=== PATIENT | female | born 1990 | race Caucasian/White ===

== ENCOUNTER 2022-05-07 12:21 | Observation (INO) | payer OTHER ==
[~2022-05-07] VITALS: Ht 170.2 cm; Wt 105.7 kg
[2022-05-07 12:46] LABS: HEMOGLOBIN 12.8 gm/dl (12.3-15.3); RED BLOOD COUNT 4.76 M/UL (4.00-5.10); WHITE BLOOD COUNT 20.7 K/UL (4.5-11.0)
[2022-05-07 13:17] LABS: BUN/CREATININE RATIO 11 (0-10)
[2022-05-07] MEDS ORDERED: ONE A DAY PREN1 EACH PO (21:39)
[2022-05-08 06:57] LABS: HEMOGLOBIN 11.2 gm/dl (12.3-15.3)
[2022-05-08 07:00] LABS: RED BLOOD COUNT 4.23 M/UL (4.00-5.10); WHITE BLOOD COUNT 11.7 K/UL (4.5-11.0)
[2022-05-08 08:28] LABS: BUN/CREATININE RATIO 11 (0-10)
== END 2022-05-08 13:20 | disposition home or self-care (01) ==
LOC: ER1 12:21 → CDU 18:44 → MED SURG 4 21:11
PROVIDERS: Student in an Organized Health Care Education/Training Program; ADMIT Obstetrics & Gynecology
DX: O99.611 Diseases of the digestive system complicating pregnancy, first trimester (principal); K82.8 Other specified diseases of gallbladder; Z3A.01 Less than 8 weeks gestation of pregnancy
CPT/HCPCS: 76705; 80053; 81001; 83690; 85025; 96374; 99285; C9113; G0378